=== PATIENT | male | born 1980 | race African-American/Black ===

== ENCOUNTER 2020-05-21 01:38 | Emergency (ER) | payer SELFPAY ==
[2020-05-21] MEDS ORDERED: Ketorolac Tromethamine 30 MG/ML VIAL ONE (02:18)
[2020-05-21 02:40] LABS: #Eosinphils 0.2 thou/uL (0.0-0.7); #Lymphocytes 1.9 thou/uL (1.20-3.40); #Monocytes 0.4 thou/uL (0.11-0.59); %Basophils 0.8 % (0.0-1.0); %Eosinophils 3.6 % (0.0-10.0); %Lymphocytes 42.3 % (21.0-51.0); %Neutrophils 44.3 % (42.0-75.0); Hemoglobin 14.2 g/dL (14.0-18.0); Mean Corpuscular HGB CONC 34.3 g/dL (32.0-36.0); Mean Corpuscular Hemoglobin 29.8 pg (27.0-31.0); Mean Corpuscular Volume 86.9 fL (78.0-98.0); Mean Platelet Volume 8.5 fL (7.4-10.4); Platelet Count 229 thou/uL (130-400); Red Blood Cell (RBC) Count 4.76 mill/uL (4.70-6.10); White Blood Cell (WBC) Count 4.5 thou/uL (4.8-10.8)
[2020-05-21 02:59] LABS: ALT (SGPT) 18 U/L (8-55); AST (SGOT) 21 U/L (5-34); Albumin 3.6 g/dL (3.5-5.0); Alkaline Phosphatase 92 U/L (40-110); Anion Gap 15 mmol/L (10-20); BUN (Urea Nitrogen) 10 mg/dL (8.9-20.6); Bilirubin, Total 0.5 mg/dL (0.2-1.2); Calc. Creatinine Clearance 0 mL/min (70-130); Calcium 8.6 mg/dL (7.8-10.44); Carbon Dioxide 24 mmol/L (22-29); Chloride 101 mmol/L (98-107); Globulin 3.2 g/dL (2.4-3.5); Glucose 287 mg/dL (70-105); Potassium 3.7 mmol/L (3.5-5.1); Protein, Total 6.8 g/dL (6.0-8.3); Sodium 136 mmol/L (136-145)
[2020-05-21 08:14] LABS: SARS-CoV-2 MS2 Positive; SARS-CoV-2 N Gene Positive; SARS-CoV-2 S Gene Positive; SARS-CoV-2 by NAA DETECTED (NotDetected); SARS-CoV-2 orf1ab Positive
--- NOTE | 2020-05-21 08:36 | RAD ---
PORTABLE CHEST 1 VIEW: Date: 05/21/2020 Time: 0227 hours HISTORY: Cough. FINDINGS/IMPRESSION: The heart size is normal. The lungs are well expanded with mild patchy opacity in the right lower sacha g. No pneumothoraces or pleural effusions are seen. Findings are suspicious for pneumonia. POS: OFF
--- NOTE | 2020-05-27 16:27 | EKG ---
Test Reason : PAIN Blood Pressure : / mmHG Vent. Rate : 078 BPM Atrial Rate : 078 BPM P-R Int : 170 ms QRS Dur : 094 ms QT Int : 392 ms P-R-T Axes : 036 -03 041 degrees QTc Int : 446 ms Normal sinus rhythm Nonspecific T wave abnormality Abnormal ECG Confirmed by ZACHARY YOUSIF M.D. ([id number]), business editor KENTON HENDRICKSON ([id number] on 05/27/2020 4:27:38 PM Referred By: Confirmed By:ZACHARY YOUSIF M.D.
== END 2020-05-21 03:40 | disposition home or self-care (01) ==
LOC: ERS 01:38
DX: U07.1 COVID-19 (principal)
CPT/HCPCS: 36415; 71045; 80053; 84484; 85025; 87635; 93005; 96372; J1885; U0003

== ENCOUNTER 2023-04-21 08:29 | Emergency (ER) | payer OTHER, SELFPAY ==
[2023-04-21 09:11] LABS: #Eosinphils 0.1 thou/uL (0.0-0.7); #Monocytes 0.4 thou/uL (0.11-0.59); %Basophils 0.7 % (0.0-1.0); %Eosinophils 2.2 % (0.0-10.0); %Lymphocytes 35.6 % (21.0-51.0); %Monocytes 7.3 % (0.0-10.0); %Neutrophils 53.8 % (42.0-75.0); Hematocrit 43.2 % (42.0-52.0); Hemoglobin 15.3 g/dL (14.0-18.0); Mean Corpuscular HGB CONC 35.4 g/dL (32.0-36.0); Mean Corpuscular Hemoglobin 30.2 pg (27.0-31.0); Mean Corpuscular Volume 85.2 fl (78.0-98.0); Mean Platelet Volume 11.6 fL (7.4-10.4); Platelet Count 234 10x3/uL (130-400); RBC Distribution Width 12.1 % (11.5-14.5); Red Blood Cell (RBC) Count 5.07 mill/uL (4.70-6.10); White Blood Cell (WBC) Count 5.5 10x3/uL (4.8-10.8)
[2023-04-21 11:04] LABS: ALT (SGPT) 23 U/L (8-55); AST (SGOT) 20 U/L (5-34); Albumin 4.3 g/dL (3.5-5.0); Alkaline Phosphatase 104 U/L (40-110); Anion Gap 17 mmol/L (10-20); BUN (Urea Nitrogen) 10 mg/dL (8.9-20.6); Bilirubin, Total 0.3 mg/dL (0.2-1.2); Calc. Creatinine Clearance 0 mL/min (70-130); Calcium 9.2 mg/dL (7.8-10.44); Carbon Dioxide 22 mmol/L (22-29); Chloride 98 mmol/L (98-107); Estimated GFR 86; Globulin 3.4 g/dL (2.4-3.5); Glucose 500 mg/dL (70-105); Protein, Total 7.7 g/dL (6.0-8.3); Sodium 132 mmol/L (136-145)
[2023-04-21] MEDS ORDERED: Insulin Regular 300 UNITS/3 ML VIAL ONE (11:32)
== END 2023-04-21 12:50 | disposition home or self-care (01) ==
LOC: ERS 08:29
DX: E11.65 Type 2 diabetes mellitus with hyperglycemia (principal); L03.031 Cellulitis of right toe
CPT/HCPCS: 36415; 36416; 80053; 83880; 85025; J1815

== ENCOUNTER 2024-07-01 11:30 | Emergency (ER) | payer SELFPAY ==
[2024-07-01] MEDS ORDERED: Acetaminophen 500 MG TAB ONE (11:37)
[2024-07-01] MEDS ORDERED: Ondansetron ODT 4 MG TAB ONE (11:37)
[2024-07-01] MEDS ORDERED: Ibuprofen 200 MG TAB ONE ×2 (11:37→12:57)
== END 2024-07-01 13:03 | disposition home or self-care (01) ==
LOC: ERS 11:30
DX: J11.1 Influenza due to unidentified influenza virus with other respiratory manifestations (principal)
CPT/HCPCS: 87428; 99283; Q0162

== ENCOUNTER 2024-07-03 21:02 | Emergency (ER) | payer SELFPAY | END 2024-07-03 23:22 | disposition home or self-care (01) | LOC: ERS 21:02 | DX: J06.9 Acute upper respiratory infection, unspecified (principal) | CPT/HCPCS: 87428; 99283 ==

== ENCOUNTER 2025-03-14 02:02 | Emergency (ER) | payer SELFPAY ==
[2025-03-14 04:17] LABS: #Basophils 0.04 10x3/uL (0.0-0.2); #Eosinophils 0.16 10x3/uL (0.0-0.7); #Monocytes 0.55 10x3/uL (0.11-0.59); #Neutrophils 2.42 10x3/uL (1.40-6.50); %Basophils 0.7 % (0.0-1.0); %Eosinophils 2.8 % (0.0-10.0); %Lymphocytes 44.7 % (21.0-51.0); %Monocytes 9.5 % (0.0-10.0); %Neutrophils 42.0 % (42.0-75.0); Hematocrit 44.8 % (42.0-52.0); Hemoglobin 15.3 g/dL (14.0-18.0); Mean Corpuscular Hemoglobin 28.3 pg (27.0-31.0); Mean Corpuscular Volume 83.0 fL (78.0-98.0); Platelet Count 233 10x3/uL (130-400); Red Blood Cell (RBC) Count 5.40 mill/uL (4.70-6.10); White Blood Cell (WBC) Count 5.77 10x3/uL (4.8-10.8)
[2025-03-14 04:32] LABS: Uric Acid 6.9 mg/dL (3.7-7.7)
[2025-03-14 04:43] LABS: ALT (SGPT) 20 U/L (Less than 45); AST (SGOT) 30 U/L (11-34); Albumin 4.3 g/dL (3.1-4.5); Alkaline Phosphatase 98 U/L (40-110); Anion Gap 19 mmol/L (10-20); BUN (Urea Nitrogen) 12 mg/dL (8.9-20.6); Bilirubin, Total 0.4 mg/dL (0.3-1.2); Calc. Creatinine Clearance 0 mL/min (70-130); Calcium 9.9 mg/dL (7.8-10.44); Carbon Dioxide 22 mmol/L (22-29); Chloride 94 mmol/L (98-107); Globulin 3.6 g/dL (2.4-3.5); Glucose 456 mg/dL (70-105); Magnesium 2.1 mg/dL (1.6-2.6); Potassium 4.6 mmol/L (3.5-5.1); Sodium 130 mmol/L (136-145)
[2025-03-14 06:15] LABS: Actual Bicarbonate (HCO3v) 21.8 mEq/L (22-28); Base Excess -2.8 mEq/L (-2.0 to +3.0); Calcium, Ionized (venous) 1.13 mmol/L (1.16-1.32); Chloride (VBG) 99 mmol/L (98-106); Hematocrit-VBG 45 % (42.0-52.0); Hemoglobin (Hb) 15.2 g/dL (13.1-17.2); Potassium (VBG) 4.12 mmol/L (3.70-5.30); Sodium 133 mmol/L (133-146)
[2025-03-14 06:20] LABS: Osmolality, Serum 296 mOsm/kg (275-295)
[2025-03-14] MEDS ORDERED: metFORMIN 500 MG TAB PO SCH (07:30)
== END 2025-03-14 07:46 | disposition home or self-care (01) ==
LOC: ERS 02:02
DX: E11.40 Type 2 diabetes mellitus with diabetic neuropathy, unspecified (principal)
CPT/HCPCS: 36415; 36416; 80053; 82010; 82607; 82805; 83735; 83930; 84550; 85025; 96360; J1815